=== PATIENT | male | born 1980 | race American Indian/Alaskan Native ===

== ENCOUNTER 2018-08-01 11:13 | Emergency (ER) | payer OTHER ==
[2018-08-01 11:16] VITALS: BMI 29.8
[2018-08-01 11:18] VITALS: BP 150/93; PULSE 96; RESP 17; TEMP 98.2; O2SAT 97
[2018-08-01] MEDS ORDERED: cefTRIAXone (Rocephin) 250 mg Inj IM ONE (11:48)
[2018-08-01] MEDS ORDERED: cefTRIAXone (Rocephin) 250 mg Inj ONE (11:56)
--- NOTE | 2018-08-01 12:04 | ED PDOC ---
HPI: Male Pain Time Seen by Provider: 08/01/18 11:34 Chief Complaint (Nursing): Male Genitourinary History Per: Patient Additional Complaint(s): Pt. states this morning he woke up with white penile discharge. Reports he had unprotected oral and vaginal intercourse last night. Denies dysuria, fever, hematuria, abd pain, testicular pain, dyspareunia. Of note, pt. has a hx of chlamydia. Further reports he had a full STD check last month and does not want any other testing other than for GC/Chlamydia. Past Medical History Reviewed: Historical Data, Nursing Documentation, Vital Signs Vital Signs: Last Vital Signs Temp 98.2 F 08/01/18 11:16 Pulse 96 H 08/01/18 11:16 Resp 17 08/01/18 11:16 BP 150/93 H 08/01/18 11:16 Pulse Ox 97 08/01/18 11:16 - Family History Family History: States: No Known Family Hx - Allergies Allergies/Adverse Reactions: Allergies Allergy/AdvReac Type Severity Reaction Status Date / Time No Known Allergies Allergy Verified 08/01/18 11:28 Review of Systems ROS Statement: Except As Marked, All Systems Reviewed And Found Negative Genitourinary Male: Positive for: Penile Discharge Physical Exam - Physical Exam Appears: Positive for: Well, Non-toxic, No Acute Distress Skin: Positive for: Normal Color, Warm. Negative for: Rash Eye Exam: Positive for: Normal appearance Pulses-Femoral (L): 2+ Pulses-Femoral (R): 2+ Gastrointestinal/Abdominal: Positive for: Soft. Negative for: Tenderness Male Genital Exam: Positive for: normal genitalia (circumcised). Negative for: bleeding, epididymal tenderness, inguinal tenderness, scrotum tenderness (R), scrotum tenderness (L), testicular tenderness (R), testicular tenderness (L), urethral discharge Back: Negative for: L CVA Tenderness, R CVA Tenderness Neurologic/Psych: Positive for: Alert, Oriented (x3) - Laboratory Results Urine dip results: Positive for: Leukocyte Esterase (TRACE). Negative for: Blood, Nitrate, Ketones, Glucose, Bilirubin, Protein - ECG O2 Sat by Pulse Oximetry: 97 - Progress ED Course And Treament: GC/chlamydia, urine dip ordered. Rocephin 250mg IM, zithromax 1gm PO ordered. Pt. informed to let sexual partners know of pending diagnosis. Pt. informed that he will need other STD testing as there are other STD's he could have contracted other than GC/Chlamydia. Disposition - Clinical Impression Clinical Impression: Urethritis - Patient ED Disposition Is Patient to be Admitted: No - Disposition Referrals: [facility] [Outside] Disposition: Routine/Home Disposition Time: 12:15 Condition: STABLE Additional Instructions: INFORM YOUR SEXUAL PARTNERS OF POSSIBLE DIAGNOSIS FOLLOW UP WITH YOUR PMD FOR FURTHER EVALUATION RETURN TO ED IMMEDIATELY IF SYMPTOMS WORSEN BENITO GARCIA, thank you for letting us take care of you today. Your pro vider was Albert Lorenzana MD and you were treated for MALE GENITOURINARY. The emergency medical care you received today was directed at your acute symptoms. If you were prescribed any medication, please fill it and take as directed. It may take several days for your symptoms to resolve. Return to the Emergency Department if your symptoms worsen, do not improve, or if you have any other problems. Please contact your doctor or call one of the physicians/clinics you have been referred to that are listed on the Patient Visit Information form that is included in your discharge packet. Bring any paperwork you were given at discharge with you along with any medications you are taking to your follow up visit. Our treatment cannot replace ongoing medical care by a primary care provider outside of the emergency department. Thank you for allowing the [facility] team to be part of your care today. If you had an X-Ray or CT scan: A Radiologist will review the ED reading if any change in treatment is needed we will contact you. If you had a blood, urine, or wound culture: It will take several days for the results, if any change in treatment is needed we will contact you. If you had an STI test: It will take 48 hours for the results. Please call after 1 week if you have not heard back. Instructions: Urethritis (DC) Forms: [employer] ([place])
== END 2018-08-01 12:29 | disposition home or self-care (01) ==
LOC: H.ER 11:13
DX: N34.2 Other urethritis (principal)
CPT/HCPCS: 87086; 87491; 87591; 96372; 99284; J0696